=== PATIENT | female | born 1955 | race Caucasian/White ===

== ENCOUNTER 2017-11-29 12:19 | Outpatient (CLI) | payer BC | END 2017-11-29 12:20 | disposition home or self-care (01) | LOC: BICMAMMO 12:19 | PROVIDERS: ATTEND Family Medicine | DX: Z12.31 Encounter for screening mammogram for malignant neoplasm of breast (principal); Z85.3 Personal history of malignant neoplasm of breast | CPT/HCPCS: 77063; 77067 ==

== ENCOUNTER 2018-04-18 13:36 | Outpatient (CLI) | payer BC ==
--- NOTE | 2018-04-18 15:36 | MRI ---
MRI OF LEFT HIP PERFORMED WITHOUT CONTRAST ENHANCEMENT: 04/18/18 HISTORY: Left hip pain for 6 to 8 months. History of breast cancer. The SI joints are symmetric in appearance. There is no signs of any pelvic insufficiency fractures. The visualized intrapelvic contents appear unremarkable. Hamstring tendon origins appear unremarkable . The small field of view images of the left hip show marked atrophy of the gluteus minimus muscle. Als o some moderate atrophy of the tensor fascia ashutosh. The gluteus minimus and medius tendons appear inta ct. There are arthritic changes of the hip joint on the sagittal views although is only a one slice findi ng. There is a question of small focus of chondrolabral separation of the anterior superior labrum. F emoral head itself maintains a normal spherical shape. No signs of muscle strain. IMPRESSION: 1. Suggestion of a small focus of chondrolabral separation of the anterior superior labrum, some what equivocal and is really only a one slice finding. If indicated MR arthrography may be helpful in further assessment of this. 2. Incidental note is made of fairly pronounced atrophy of the gluteus minimus muscle. POS: [facility]
== END 2018-04-18 13:37 | disposition home or self-care (01) ==
LOC: BICMRI 13:36
PROVIDERS: ATTEND Orthopaedic Surgery
DX: M25.552 Pain in left hip (principal)

== ENCOUNTER 2018-12-05 12:15 | Outpatient (CLI) | payer BC ==
--- NOTE | 2018-12-05 14:33 | MMO ---
Bilateral MAMMO Bilat Screen [facility]. CLINICAL HISTORY: Patient is 63 years old and is seen for screening. The patient has no family history of breast cancer. The patient has a history of malignant (generic) in the right breast in 1994. The patient has a history of right Excisional Biopsy at age 39 - malignant and right Lumpectomy in 1994 - malignant. VIEWS: The views performed were: bilateral craniocaudal with tomosynthesis and bilateral mediolateral oblique with tomosynthesis. FILMS COMPARED: The present examination has been compared to prior imaging studies performed at [facility] on 07/16/2014, 07/22/2015, 11/16/2016 and 11/29/2017. MAMMOGRAM FINDINGS: There are scattered fibroglandular densities. Finding 1: There are stable benign appearing calcifications seen in both breasts. Finding 2: There is a stable post-surgical scar seen in the upper-outer region of the right breast. Finding 3: There is a stable intramammary lymph node seen in the right breast. There are no suspicious masses, suspicious calcifications, or new areas of architectural distortion. IMPRESSION: THERE IS NO MAMMOGRAPHIC EVIDENCE OF MALIGNANCY. A ROUTINE FOLLOW-UP MAMMOGRAM IN 1 YEAR IS RECOMMENDED. THE RESULTS OF THIS EXAM WERE SENT TO THE PATIENT. ACR BI-RADS Category 2 - Benign finding MAMMOGRAPHY NOTE: 1. A negative mammogram report should not delay a biopsy if a dominant of clinically suspicious mass is present. 2. Approximately 10% to 15% of breast cancers are not detected by mammography. 3. Adenosis and dense breasts may obscure an underlying neoplasm. Reported by: XOCHILT CASAREZ MD Electonically Signed: [id number]
== END 2018-12-05 12:16 | disposition home or self-care (01) ==
LOC: BICMAMMO 12:15
PROVIDERS: ATTEND Family Medicine
DX: Z12.31 Encounter for screening mammogram for malignant neoplasm of breast (principal); Z85.3 Personal history of malignant neoplasm of breast
CPT/HCPCS: 77063; 77067

== ENCOUNTER 2018-12-30 14:34 | Outpatient (CLI) | payer BC ==
--- NOTE | 2018-12-30 16:10 | MRI ---
MRI BRAIN WITH AND WITHOUT CONTRAST: DATE: 12/30/18 HISTORY: 63-year-old female with ICD-10: R42, dizziness, and R29.898, leg weakness, bilateral. COMPARISON: None. TECHNIQUE: Multiple sequences obtained in axial, sagittal, and coronal planes; pre and post IV injection of gado linium-based contrast agent: 18 mL Multihance. FINDINGS: There are at least two small old short linear infarctions in the right cerebellar hemisphere, and at least one in the contralateral left cerebellar hemisphere. No intra-axial signal abnormality in the b rainstem. There are mild patchy chronic ischemic white matter changes due to microvascular atheroscle rosis in the bilateral gabriel radiata. No evidence of moderate sized or large cerebral cortical infar ction of any age. No restricted diffusion. Ventricles are normal in size and configuration. No eviden ce of recent intra-axial hemorrhage. No abnormal intra-axial enhancement, mass effect, midline shift, or extra-axial fluid collection. IMPRESSION: 1. No acute intracranial findings. 2. 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 3. Mild chronic ischemic white matter changes. 4. Otherwise negative. MITZI Horan POS: [facility]
== END 2018-12-30 14:35 | disposition home or self-care (01) ==
LOC: BICMRI 14:34
PROVIDERS: ATTEND Family Medicine
DX: R29.898 Other symptoms and signs involving the musculoskeletal system (principal); R42 Dizziness and giddiness; Z86.73 Personal history of transient ischemic attack (TIA), and cerebral infarction without residual deficits
CPT/HCPCS: 70553; 82565

== ENCOUNTER 2019-05-08 14:48 | Outpatient (CLI) | payer BC ==
--- NOTE | 2019-05-08 15:26 | BD ---
DEXA BONE DENSITY STUDY: HISTORY: Menopausal screening. FINDINGS: LUMBAR SPINE MEAN BMD (g/cm2) T-SCORE L1 1.026 +0.3 L2 1.213 +1.7 L3 1.239 +1.4 L4 1.372 +2.8 TOTAL 1.229 +1.7 Within normal limits. LEFT FEMUR MEAN BMD (g/cm2) T-SCORE FEMORAL NECK 0.749 -0.9 TOTAL 0.768 -1.4 Evidence for osteopenia with increased risk for fracture. The 10 year FRAX score for a major osteoporotic fracture is 7.0% and hip fracture is 0.4%. POS: [facility]
== END 2019-05-08 14:49 | disposition home or self-care (01) ==
LOC: BICMAMMO 14:48
PROVIDERS: ATTEND Nurse Practitioner Family
DX: Z13.820 Encounter for screening for osteoporosis (principal); M85.852 Other specified disorders of bone density and structure, left thigh
CPT/HCPCS: 77080

== ENCOUNTER 2019-06-12 12:26 | Outpatient (CLI) | payer BC ==
--- NOTE | 2019-06-12 13:40 | MRI ---
EXAM: MRI lumbar spine without contrast HISTORY: Chronic lumbar radiculopathy COMPARISON: None TECHNIQUE: Multiple planar multisequence MR images were obtained of the lumbar spine without contrast . FINDINGS: The intervertebral discs are narrowed throughout the lumbar spine are desiccated. Endplate degenerati ve changes are seen throughout the lumbar spine. The vertebral bodies demonstrate normal height without evidence of fracture or subluxation. The prevertebral and paraspinal soft tissues are unremarkable. The conus medullaris terminates normally at L1/2. T12/L1: No significant posterior bulge or protrusion. No posterior facet arthrosis. No central tatiana l stenosis. No neural foraminal stenosis L1/2: Small generalized concentric disc bulge. No posterior facet arthrosis. No central canal steno sis. No neural foraminal stenosis L2/3: Large right lateral disc osteophyte complex No posterior facet arthrosis. Moderate central ca nal stenosis. Severe right and moderate left neural foraminal stenosis L3/4: Small disc osteophyte complex. Mild bilateral posterior facet arthrosis. Mild central canal s tenosis. Moderate bilateral neural foraminal stenosis L4/5: Moderate disc osteophyte complex. There is a superimposed small extruded disc fragment in the r ight subarticular region. Moderate bilateral posterior facet arthrosis. Moderate central canal stenosis. Severe bilateral neural foraminal stenosis L5/S1: Small disc osteophyte complex. No posterior facet arthrosis. No central canal stenosis. Mod erate left and mild right neural foraminal stenosis IMPRESSION: Degenerative changes of the lumbar spine as above
== END 2019-06-12 12:27 | disposition home or self-care (01) ==
LOC: BICMRI 12:26
PROVIDERS: ATTEND Psychiatry & Neurology Neurology
DX: M47.26 Other spondylosis with radiculopathy, lumbar region (principal)
CPT/HCPCS: 72148

== ENCOUNTER 2019-07-17 08:11 | Outpatient (CLI) | payer BC ==
--- NOTE | 2019-07-17 09:11 | MRI ---
Exam: MRI cervical spine without contrast HISTORY: Cervical radiculopathy. COMPARISON: None FINDINGS: Appropriate T1 marrow signal intensity of the cervical vertebra. Cervical spine vertebral body heigh t is maintained. No fracture. No significant STIR hyperintensity to suggest vertebral body edema or ligamentous injury. Visualized brain parenchyma, cervicomedullary junction, cervical cord and the upper thoracic cord hav e a normal size and signal intensity. Straightening of cervical lordosis is presumed to be due to patient position Mass effect upon the posterior right hypopharynx due to medial deviation of the right internal caroti d artery. C2-C3: No significant central canal stenosis. Right neural foramen is patent. Mild left foraminal cinthya rowing due to uncovertebral and facet hypertrophy C3-C4: Broad-based disc bulge with a minimal central disc herniation. No significant central canal st enosis. Mild bilateral forming due to uncovertebral hypertrophy C4-C5: Broad-based disc bulge abuts the thecal sac. Subarachnoid space is maintained. Mild right fora grant narrowing due to uncovertebral hypertrophy. Left neural foramen is patent C5-C6: Broad-based disc bulge abuts the thecal sac. Mild central canal stenosis. Subarachnoid space i s maintained. Mild right and severe left neural foraminal narrowing due to uncovertebral hypertrophy. C6-C7: Severe loss of disc space height. Broad-based disc osteophyte complex abuts the thecal sac. Mi ld flattening the right aspect of the cervical cord, without cord signal abnormality. Mild central canal stenosis. Moderate bilateral neural foraminal narrowing due to uncovertebral hypertrophy C7-T1: No significant central canal stenosis or significant neural foraminal narrowing IMPRESSION: 1. Multilevel degenerative changes of the cervical spine as described above. 2. Mild mass effect upon the right aspect of the cervical cord at C6-C7 due to a broad-based disc ost eophyte complex. Mild central canal stenosis. No cord signal abnormality. 3. Multilevel significant neural foraminal narrowing as described above. Moderate bilateral neural fo raminal narrowing at C6-C7, severe left neural foraminal narrowing at C5-C6. Transcribed Date/Time: 07/17/2019 9:18 AM
== END 2019-07-17 08:12 | disposition home or self-care (01) ==
LOC: TBSIIMAG 08:11
PROVIDERS: ATTEND Psychiatry & Neurology Neurology
DX: M47.22 Other spondylosis with radiculopathy, cervical region (principal); M25.78 Osteophyte, vertebrae; M48.02 Spinal stenosis, cervical region
CPT/HCPCS: 72141

== ENCOUNTER 2019-08-03 13:19 | Outpatient (CLI) | payer BC ==
--- NOTE | 2019-08-03 14:36 | MRI ---
MRI brain noncontrast HISTORY: Cognitive changes. Memory loss. FINDINGS: There is no evidence of acute intracranial hemorrhage or infarct. The ventricles appear nor mal in size, shape and position. There is no mass effect or shift of midline structures. Visualized paranasal sinuses remain well-aera clif. Small focus of blooming artifact at the lateral canthus of the left orbit may be related to make-up o r prior injury. IMPRESSION: No abnormalities are demonstrated.
== END 2019-08-03 13:20 | disposition home or self-care (01) ==
LOC: BICMRI 13:19
PROVIDERS: ATTEND Psychiatry & Neurology Neurology
DX: R41.89 Other symptoms and signs involving cognitive functions and awareness (principal)
CPT/HCPCS: 70551

== ENCOUNTER 2019-12-10 13:20 | Outpatient (CLI) | payer BC ==
--- NOTE | 2019-12-10 15:07 | MMO ---
Bilateral MAMMO Bilat Screen [facility]. CLINICAL HISTORY: Patient is 64 years old and is seen for screening. The patient has no family history of breast cancer. The patient has a history of malignant (generic) in the right breast in 1994. The patient has a history of right Excisional Biopsy at age 39 - malignant and right Lumpectomy in 1994 - malignant. VIEWS: The views performed were: bilateral craniocaudal with tomosynthesis and bilateral mediolateral oblique with tomosynthesis. FILMS COMPARED: The present examination has been compared to prior imaging studies performed at [facility] on 07/22/2015, 11/16/2016, 11/29/2017 and 12/05/2018. This study has been interpreted with the assistance of computer-aided detection. MAMMOGRAM FINDINGS: There are scattered fibroglandular densities. Finding 1: Benign calcifications are noted bilaterally. Finding 2: There are stable post operative changes seen in the right breast. There are no suspicious masses, suspicious calcifications, or new areas of architectural distortion. IMPRESSION: THERE IS NO MAMMOGRAPHIC EVIDENCE OF MALIGNANCY. A ROUTINE FOLLOW-UP MAMMOGRAM IN 1 YEAR IS RECOMMENDED. THE RESULTS OF THIS EXAM WERE SENT TO THE PATIENT. ACR BI-RADS Category 2 - Benign finding MAMMOGRAPHY NOTE: 1. A negative mammogram report should not delay a biopsy if a dominant of clinically suspicious mass is present. 2. Approximately 10% to 15% of breast cancers are not detected by mammography. 3. Adenosis and dense breasts may obscure an underlying neoplasm. Reported by: LEE ANN PLATA MD Electonically Signed: [id number]
== END 2019-12-10 13:21 | disposition home or self-care (01) ==
LOC: BICMAMMO 13:20
PROVIDERS: ATTEND Family Medicine
DX: Z12.31 Encounter for screening mammogram for malignant neoplasm of breast (principal); Z85.3 Personal history of malignant neoplasm of breast; Z98.890 Other specified postprocedural states
CPT/HCPCS: 77063; 77067

== ENCOUNTER 2021-07-07 13:25 | Outpatient (CLI) | payer BC | END 2021-07-07 13:26 | disposition home or self-care (01) | LOC: BICMAMMO 13:25 | PROVIDERS: ATTEND Nurse Practitioner Family | DX: Z13.820 Encounter for screening for osteoporosis (principal); M85.852 Other specified disorders of bone density and structure, left thigh | CPT/HCPCS: 77080 ==

== ENCOUNTER 2021-12-22 13:16 | Outpatient (CLI) | payer BC, MEDICARE | END 2021-12-22 13:17 | disposition home or self-care (01) | LOC: BICMAMMO 13:16 | PROVIDERS: ATTEND Family Medicine | DX: Z12.31 Encounter for screening mammogram for malignant neoplasm of breast (principal); Z85.3 Personal history of malignant neoplasm of breast; Z98.890 Other specified postprocedural states | CPT/HCPCS: 77063; 77067 ==

== ENCOUNTER 2022-09-19 17:30 | Outpatient (CLI) | payer BC | END 2022-09-19 17:31 | disposition home or self-care (01) | LOC: SLEEPLAB 17:30 | PROVIDERS: ATTEND Family Medicine | DX: G47.33 Obstructive sleep apnea (adult) (pediatric) (principal); R09.02 Hypoxemia | CPT/HCPCS: 95800 ==

== ENCOUNTER 2023-02-22 13:20 | Outpatient (CLI) | payer BC | END 2023-02-22 13:21 | disposition home or self-care (01) | LOC: BICMAMMO 13:20 | PROVIDERS: ATTEND Family Medicine | DX: Z12.31 Encounter for screening mammogram for malignant neoplasm of breast (principal); Z85.3 Personal history of malignant neoplasm of breast; Z98.890 Other specified postprocedural states | CPT/HCPCS: 77063; 77067 ==

== ENCOUNTER 2023-11-19 07:36 | Outpatient (CLI) | payer BC | END 2023-11-19 07:37 | disposition home or self-care (01) | LOC: BICMRI 07:36 | PROVIDERS: ATTEND Family Medicine | DX: R27.0 Ataxia, unspecified (principal) | CPT/HCPCS: 70551 ==

== ENCOUNTER 2024-02-28 13:13 | Outpatient (CLI) | payer BC | END 2024-02-28 13:14 | disposition home or self-care (01) | LOC: BICMAMMO 13:13 | PROVIDERS: ATTEND Family Medicine | DX: Z12.31 Encounter for screening mammogram for malignant neoplasm of breast (principal); Z85.3 Personal history of malignant neoplasm of breast; Z98.890 Other specified postprocedural states | CPT/HCPCS: 77063; 77067 ==

== ENCOUNTER 2024-05-05 14:50 | Outpatient (CLI) | payer BC | END 2024-05-05 14:51 | disposition home or self-care (01) | LOC: BICRAD 14:50 | PROVIDERS: ATTEND Family Medicine | DX: R07.81 Pleurodynia (principal) ==